=== PATIENT | female | born 1980 | race Caucasian/White ===

== ENCOUNTER 2023-04-21 10:08 | Emergency (ER) | payer MEDICAID ==
[~2023-04-21] VITALS: Ht 160 cm; Wt 91.0 kg
[2023-04-21 10:11] VITALS: O2SAT 99
[2023-04-21 12:01] LABS: CLARITY URINE CLEAR (CLEAR); COLOR URINE YELLOW (YELLOW); KETONES URINE NEGATIVE (NEGATIVE); LEUKOCYTE ESTERASE URINE NEGATIVE (NEGATIVE); NITRITE URINE NEGATIVE (NEGATIVE); OCCULT BLOOD URINE NEGATIVE (NEGATIVE); PH URINE 7.5 (4.5-8.0); PROTEIN URINE NEGATIVE (NEGATIVE); SPECIFIC GRAVITY URINE 1.021 (1.005-1.030)
[2023-04-21] MEDS ORDERED: KETOROLAC 30MG/ML VIAL IV STA (12:07)
[2023-04-21 12:36] LABS: CHLORIDE 107 mEq/L (98-107)
[2023-04-21 12:57] LABS: BASOPHILS % 0.9 % (0.0-2.0); EOSINOPHILS % 5.2 % (0.0-5.0); HEMATOCRIT. 37.4 % (36.0-48.0); HEMOGLOBIN. 12.8 g/dL (12.0-16.0); LYMPHOCYTES % 38.3 % (20.0-50.0); MEAN CORPUSCULAR HEMOGLOBIN 30.3 pg (28.0-32.0); MEAN CORPUSCULAR VOLUME 88.8 fL (81.0-99.0); MEAN PLATELET VOLUME 8.8 fl (7.4-10.4); MONOCYTES % 5.8 % (2.0-8.0); NEUTROPHILS % 49.8 % (40.0-76.0); PLATELET 351 x1000/uL (130-400); RED BLOOD CELL COUNT 4.22 mill/uL (4.2-5.4); RED CELL DISTRIBUTION WIDTH 14.3 % (11.6-14.6)
[2023-04-21] MEDS ORDERED: KETOROLAC 30MG/ML VIAL IV NR (15:00)
[2023-04-21 15:47] LABS: HCG SCREEN NEGATIVE
[2023-04-21] MEDS ORDERED: IOHEXOL-350 100 ML BOTTLE ONE (16:32)
[2023-04-21 19:40] VITALS: BP 132/80; PULSE 79; RESP 16; TEMP 98
== END 2023-04-21 19:53 | disposition home or self-care (01) ==
LOC: ER 10:08
DX: R07.81 Pleurodynia (principal); M54.9 Dorsalgia, unspecified; F41.9 Anxiety disorder, unspecified
CPT/HCPCS: 80053; 81003; 81025; 84703; 85025; 85379; 36415; 71045; 71275; 74176; 96374; 99285; Q9967; J1885; Z7610 ×2